=== PATIENT | male | born 1990 | race Caucasian/White ===

== ENCOUNTER 2018-09-15 07:29 | Emergency (ER) | payer OTHER ==
[~2018-09-15] VITALS: Ht 170.2 cm; Wt 73.7 kg
[~2018-09-15 07:29] MED LIST: ALBUTEROL INH
[2018-09-15 07:45] LABS: GLUCOSE,POINT OF CARE 129 MG/DL (70-110)
[2018-09-15] MEDS ORDERED: NALOXONE HCL 1 MG/ML 2 ML SYG IVP ONE ×2 (07:45→09:45)
[2018-09-15 11:15] VITALS: BP 123/79
== END 2018-09-15 13:44 | disposition home or self-care (01) ==
LOC: EMS 07:30
DX: T40.1X1A Poisoning by heroin, accidental (unintentional), initial encounter (principal); J45.909 Unspecified asthma, uncomplicated; Y92.89 Other specified places as the place of occurrence of the external cause
CPT/HCPCS: 71045; 82962; 96374; 96376; 99283; J2310

== ENCOUNTER 2023-01-09 23:58 | Emergency (ER) | payer OTHER ==
[~2023-01-09] VITALS: Ht 167.6 cm; Wt 85.0 kg
[2023-01-10 00:07] VITALS: BP 122/88
== END 2023-01-10 00:05 | disposition left against medical advice (07) ==
LOC: EMS 23:59
DX: Z53.21 Procedure and treatment not carried out due to patient leaving prior to being seen by health care provider (principal)
CPT/HCPCS: 99281; Z7502